=== PATIENT | male | born 1985 | race Caucasian/White ===

== ENCOUNTER 2025-05-28 17:03 | Emergency (ER) | payer OTHER, SELFPAY ==
[2025-05-28 17:04] VITALS: BP 130/90
[2025-05-28 18:07] VITALS: BMI 28.2
--- NOTE | 2025-05-28 18:36 | ED.GENMED ---
History of Present Illness
General
Chief Complaint: Skin Surface Trauma
Source: patient
Exam Limitations: none
Time Seen by Provider: 05/28/25 18:07
History of Present Illness
History of Present Illness:
See MDM
Past History
Past History
ED Past Medical History: None
ED Past Surgical History: None
Social History
Tobacco: Non-smoker
Alcohol: None
Phy Exam
Physical Exam
Physical Exam:
See MDM
Course
Orders/Labs/Results
Orders:
Orders
05/28/25 18:32
Amoxicillin 875 mg/Clav 125 mg [Augmentin 875 mg/125 mg] 1 tablet PO NOW STA
Tetanus/Diphth/Acelpertussis [Adacel] 0.5 ml IM .ONCE ONE
Vital Signs
Initial and Last Documented VS:
Initial Vital Signs
Temp Pulse Resp BP Pulse Ox
98.7 F 78 18 130/90 98
05/28/25 17:04 05/28/25 17:04 05/28/25 17:04 05/28/25 17:04 05/28/25 17:04
Last Documented Vital Signs
Temp Pulse Resp BP Pulse Ox
98.7 F 78 18 130/90 98
05/28/25 17:04 05/28/25 17:04 05/28/25 17:04 05/28/25 17:04 05/28/25 18:41
Procedures
Laceration Closure
Right Distal Palmar [employer]:
Status of Wound: clean
Size of Wound in cm: 1.5
Description of Wound Edges: sharp
Preparation: cleaned with Betadine
Anesthesia: 1% Lidocaine
Revision/Debridement: routine- no revision
Wound exploration: explored to base- no FB
Type of Closure: single layer closure
Skin Closure Material: 4-0 nylon
Number of sutures: 4
MDM/Problems Addressed
Differential Diagnosis Includes:
Note:
CHIEF COMPLAINT(S)
Laceration on the hand between the third and fourth fingers.
HISTORY OF PRESENT ILLNESS
The patient is a 40-year-old male who presents with a laceration on his hand, located between the third and fourth fingers. The injury occurred while the patient was handling metal that was screwed down on the floor during the day. He reports that
he immediately applied a towel to the wound and kept it there for approximately six hours to manage the bleeding. The patient visited an urgent care facility where he was advised to seek further evaluation for the injury. Upon examination, the
patient has intact movement and sensation in the affected area and demonstrates the ability to bend and squeeze the fingers without difficulty. There is no indication of tendon or ligament damage. The laceration is superficial without significant
depth, making it unlikely to have injured deeper structures such as nerves. The patient reports no allergies.
PHYSICAL EXAM
General: Alert, no acute distress.
Skin: Warm, dry.
Head: Normocephalic, atraumatic
Neck: Appears supple, trachea midline.
Eyes, Ears, Nose, Mouth, and Throat: Oral mucosa moist.
Cardiovascular: No signs of cyanosis
Respiratory: Respirations are non-labored.
Abdomen: Non-distended
Musculoskeletal: 1.5 cm laceration to the webbing of right 2nd and 3rd digit. Sensation grossly intact to the affected fingers. No evidence of ligamentous injury on exam
Neurological: No focal neurological deficit observed.
Psychiatric: Cooperative, appropriate mood and affect.
PLAN
1. Clean and irrigate the wound thoroughly to prevent infection.
2. Administer tetanus prophylaxis.
3. Prescribe Augmentin (amoxicillin and clavulanate) for antibiotic coverage to manage the risk of infection.
4. Sutures will be placed to close the laceration. They should be removed in 7 to 10 days. Instructions provided on removal procedures, including the option for the patient to have them removed at urgent care.
5. The patient will be provided with contact information for a hand specialist if needed for further evaluation, but currently, there is no need for specialized care unless complications arise.
DIFFERENTIAL DIAGNOSIS
The Differential Diagnosis includes, in no particular order and is not limited to:
1. Superficial laceration
2. Tendon laceration
3. Ligament injury
4. Nerve injury
5. Infection
6. Foreign body in the wound
7. Hematoma
8. Contusion
9. Crush injury
10. Bone fracture
SUMMARY OF ENCOUNTER
The patient, a right-hand dominant individual, presented to the emergency department with a laceration between the third and fourth fingers of his right hand. He reported a pre-existing injury causing decreased mobility in his right wrist but no
clinical evidence suggested tendon involvement from the current laceration. The examination showed that his distal hand and fingers were neurovascularly intact. Due to the nature of the laceration, which may have involved contamination, the patient
received a prescription for amoxicillin and clavulanate (Augmentin). Tetanus prophylaxis was administered during the visit. Hand surgery was consulted proactively should concerning features develop, and these considerations were discussed with the
patient. He expressed comfort with being discharged home.
DISPOSITION
Discharge.
PLAN
1. Wound cleaning and irrigation were performed.
2. Sutures were placed to close the laceration.
3. The patient will be on antibiotics (amoxicillin and clavulanate) to manage potential infection risk.
4. A hand surgery consultation was recommended if any signs of infection or other concerns arise.
5. Patient advised on signs of complications and instructed to return if any issues occur.
PATIENT EDUCATION AND COUNSELING
The patient was informed about the risks of infection and the importance of antibiotic adherence. Potential complications and signs to watch for were discussed, and he was advised to seek further care if they arise.
FOLLOW-UP INSTRUCTIONS
The patient should monitor the wound for any signs of infection or other complications and return for suture removal in 7-10 days or earlier if needed. Follow-up with a hand specialist if concerning symptoms develop was advised.
MEDICATION RECONCILIATION
- Augmentin (amoxicillin and clavulanate) prescribed for potential infection management.
MEDICAL DECISION MAKING
- Complexity of Data Reviewed: Differential diagnosis includes superficial laceration, tendon, ligament, or nerve injury, infection, foreign body presence, hematoma, contusion, crush injury, and bone fracture.
- Risk: Consideration of Admission/Observation: Escalation of care including admission/observation was considered given the complexity and risk of the patients presenting complaint and past wrist injury. Ultimately, the patient was deemed safe for
outpatient management with close follow-up. Rationale: The work-up was reassuring, symptoms were well controlled upon reevaluation, vital signs were stable, and the patient was agreeable with discharge and reliable for follow-up.
DIAGNOSIS
- Superficial laceration of the interwebbing area between the third and fourth fingers, ICD-10 code S61.219 (unspecified open wound of an unspecified finger without damage to nail).
*Pulse Oximetry
SaO2: 98
Oxygen Mode of Delivery: Room air
Patient hypoxic: no
*Critical Care Note
Total Time (30-74mins, 75-104mins- exclusive of procedures): Not Applicable
ED Attending Note
-
Portions of this chart may have been created with voice recognition software.� Occasional wrong word or��sound alike� substitutions may have occurred due to the inherent limitations of voice recognition software.
Discharge Plan
Departure
Patient Disposition: Home (Routine Discharge)
Date of Disposition: 05/28/25
Time of Disposition: 18:39
Patient with high blood pressure during this ER visit?: No
Discharge Problem:
Laceration of hand
Instructions: Laceration Repair With Stitches (DC)
Prescriptions:
New
amoxicillin-pot clavulanate 875-125 mg tablet
1 tab PO BID Qty: 14 0RF
Referrals:
Nathan Small MD [Active, Orthopedics]
Activity Restrictions/Additional Instructions:
Keep wound clean and dry, change dressing if it becomes soiled or wet. Watch for signs of infection: fever over 100.5', increasing pain, red streaks around wound, swelling, drainage of pus, or bad smell. If any of these happen, return to ED
promptly. Return to ED or make an appointment with your doctor to have the 4 sutures removed in 7-10 days. All wounds may scar, however you may reduce the appearance of scarring by avoiding sun exposure to the scar and applying skin moisturizer
with spf protection to the scar once the wound is healed.
If you develop any issues, please follow-up with a hand surgeon.
Interventions
Interventions:
*Nursing Disposition Last Done: 05/28/25 18:52
ED-Skin Assessment Last Done: 05/28/25 18:07
Discharge Date and Time
Discharge Date/Time: 05/28/25 18:53
Print Language: SPANISH
[2025-05-28] MEDS: ADACEL 0.5 ML IM (18:45)
[2025-05-28] MEDS: AUGMENTIN 875 MG/125 MG 1 TABLET PO (18:45)
== END 2025-05-28 18:53 | disposition home or self-care (01) ==
LOC: EMR 17:03
PROVIDERS: EMERGENCY PHYSICIAN Student in an Organized Health Care Education/Training Program
DX: S61.411A Laceration without foreign body of right hand, initial encounter (principal); W27.0XXA Contact with workbench tool, initial encounter; Z23 Encounter for immunization
CPT/HCPCS: 99283; 12001; 90471; 90715

== ENCOUNTER 2025-08-17 07:03 | Day surgery (SDC) | payer OTHER, SELFPAY ==
[2025-08-04 10:02] VITALS: BMI 27.4
[2025-08-04 11:44] LABS: Blood Urea Nitrogen 18 mg/dl (9-20); Calcium 9.7 mg/dl (8.4-10.2); Carbon Dioxide 31 mmol/L (22-30); Chloride 100 mmol/L (98-107); Estimated Creatinine Clearance 105 ml/min; Glucose 94 mg/dl (70-99); Potassium 4.2 mmol/L (3.5-5.1); Sodium 137 mmol/L (135-145); eGFR > 60.00
[2025-08-17] VITALS (17 sets, daily range): BP systolic 84–155; BP diastolic 50–95; BMI 27.4
[2025-08-17] MEDS: TYLENOL 1000 MG PO (12:32)
[2025-08-17] MEDS: CELEBREX 200 MG PO (12:32)
[2025-08-17] MEDS: DILAUDID 0.5 MG IV ×2 (14:52→15:05)
[2025-08-17] MEDS: ZOFRAN 4 MG IV (16:00)
== END 2025-08-17 17:40 | disposition home or self-care (01) ==
LOC: SDS 07:03
PROVIDERS: ATTENDING PHYSICIAN Orthopaedic Surgery Hand Surgery; FAMILY PHYSICIAN Internal Medicine
DX: M93.1 Kienbock's disease of adults (principal); M19.031 Primary osteoarthritis, right wrist; Z87.39 Personal history of other diseases of the musculoskeletal system and connective tissue; Z98.890 Other specified postprocedural states
CPT/HCPCS: 25215; 36415; 80048; 93005